=== PATIENT | female | born 1960 | race Caucasian/White ===

== ENCOUNTER 2017-06-30 14:50 | Emergency (ER) | payer BC, MEDICAID ==
[~2017-06-30] VITALS: Ht 170.2 cm; Wt 83.9 kg
[~2017-06-30 14:50] MED LIST: ALPR0.5T; CAR125T; LISI-275; SIMV5TAB38
[2017-06-30 16:04] VITALS: BP 123/69
[2017-06-30] MEDS ORDERED: IBUPROFEN 600 MG TAB PO ONE (16:15)
[2017-06-30] MEDS ORDERED: cefTRIAXone SOD 1,000 MG VL IM ONE (16:15)
[2017-06-30] MEDS ORDERED: LIDOCAINE 1% (LOCAL ANESTH.) PF 5ml SDV ONE (16:23)
[2017-06-30] MEDS ORDERED: LIDOCAINE 1% (LOCAL ANESTH.) PF 5ml SDV IN ONE (16:30)
== END 2017-06-30 16:45 | disposition home or self-care (01) ==
LOC: ER 14:50
DX: N76.4 Abscess of vulva (principal); L73.1 Pseudofolliculitis barbae; I25.2 Old myocardial infarction; I10 Essential (primary) hypertension; F17.210 Nicotine dependence, cigarettes, uncomplicated; Z86.73 Personal history of transient ischemic attack (TIA), and cerebral infarction without residual deficits
CPT/HCPCS: 96372; 99283; J0696

== ENCOUNTER 2017-07-24 16:37 | Emergency (ER) | payer MEDICAID ==
[~2017-07-24] VITALS: Ht 170.2 cm; Wt 83.9 kg
[2017-07-24 18:07] LABS: Basophils # (auto) 0.3 uL; Basophils % (auto) 4.4 % (0.0-2.0); Eosinophils # (auto) 0.2 uL; Hematocrit 49.8 % (36.0-46.0); Hemoglobin 16.7 g/dL (12.2-16.2); Lymphocytes # (auto) 1.6 uL; Lymphocytes % (auto) 21.2 % (10.0-50.0); Mean Corpuscular Hemoglobin 32.5 pg (28.0-32.0); Mean Corpuscular Hgb Conc. 33.6 g/dL (32.0-36.0); Mean Corpuscular Volume 96.8 fL (80.0-100.0); Monocytes # (auto) 0.5 uL; Neutrophils % (auto) 65.4 % (37.0-80.0); Nucleated Red Blood Cells % 0.1 %; Platelet Count (auto) 252 10^3/uL (140-450); Red Blood Cells 5.14 10^6/uL (4.0-5.20); Red Cell Distribution Width 13.2 % (11.8-14.3); White Blood Cell 7.6 10^3/uL (4.4-10.8)
[2017-07-24 18:27] LABS: Alanine Aminotransferase 19 U/L (13-56); Albumin 3.5 g/dL (3.4-5.0); Alkaline Phosphatase 83 U/L (45-117); Anion Gap 8 (5-15); Aspartate Aminotransferase 9 U/L (15-37); BUN/Creatinine Ratio 14.3; Bilirubin, Total 0.3 mg/dL (0.2-1.0); Blood Urea Nitrogen 11 mg/dL (7-18); Carbon Dioxide 29 mmol/L (21-32); Chloride 104 mmol/L (98-107); GFR African American 100 mL/min; GFR Non-African American 83 mL/min; Glucose 101 mg/dL (74-106); Potassium 3.7 mmol/L (3.5-5.1); Sodium 141 mmol/L (136-145); Total Protein 7.6 g/dL (6.4-8.2)
[2017-07-24] MEDS ORDERED: ONDANSETRON HCL 4 MG/2 ML VIAL IV ONE (20:15)
[2017-07-24] MEDS ORDERED: ASPirin 81 mg TAB PO ONE (20:15)
[2017-07-24] MEDS ORDERED: MORPHINE SULFATE 8mg/ml INJ SDV IV ONE (20:15)
[2017-07-24 21:42] VITALS: BP 123/82
== END 2017-07-24 21:46 | disposition home or self-care (01) ==
LOC: ER 16:37
DX: R07.89 Other chest pain (principal); I25.2 Old myocardial infarction; I10 Essential (primary) hypertension; F12.10 Cannabis abuse, uncomplicated; F17.210 Nicotine dependence, cigarettes, uncomplicated; Z86.73 Personal history of transient ischemic attack (TIA), and cerebral infarction without residual deficits
CPT/HCPCS: 36415; 71046; 80053; 84484; 85025; 93005; 94761

== ENCOUNTER 2017-09-25 16:50 | Emergency (ER) | payer MEDICAID ==
[~2017-09-25] VITALS: Ht 170.2 cm; Wt 83.9 kg
[2017-09-25 17:15] VITALS: BP 119/63
[2017-09-25] MEDS ORDERED: cefTRIAXone SOD 1,000 MG VL IM ONE (20:00)
== END 2017-09-25 20:08 | disposition home or self-care (01) ==
LOC: ER 16:50
DX: M54.31 Sciatica, right side (principal); M54.32 Sciatica, left side; L03.116 Cellulitis of left lower limb; W57.XXXA Bitten or stung by nonvenomous insect and other nonvenomous arthropods, initial encounter; Y93.89 Activity, other specified; Y99.8 Other external cause status; Y92.89 Other specified places as the place of occurrence of the external cause
CPT/HCPCS: 96372; 99283; J0696

== ENCOUNTER → 2018-05-31 | Emergency (ER) | payer MEDICAID ==
[~2018-05-31] VITALS: Ht 170.2 cm; Wt 69.4 kg
[~2018-05-31] MED LIST changes: +HYDROcodone-ACET 10/325MG TAB PO ONE
[2018-05-31 16:19] VITALS: BP 117/77
[2018-05-31 16:46] LABS: Basophils # (auto) 0 uL; Basophils % (auto) 0.7 % (0.0-2.0); Eosinophils # (auto) 0.2 uL; Eosinophils % (auto) 3.2 % (0.0-7.0); Hematocrit 44.8 % (36.0-46.0); Hemoglobin 14.9 g/dL (12.2-16.2); Lymphocytes % (auto) 33.3 % (10.0-50.0); Mean Corpuscular Hemoglobin 32.1 pg (28.0-32.0); Mean Corpuscular Hgb Conc. 33.3 g/dL (32.0-36.0); Mean Corpuscular Volume 96.6 fL (80.0-100.0); Monocytes # (auto) 0.4 uL; Monocytes % (auto) 7.4 % (0.0-12.0); Neutrophils # (auto) 3.3 uL; Neutrophils % (auto) 55.4 % (37.0-80.0); Nucleated Red Blood Cells % 0.1 %; Platelet Count (auto) 241 10^3/uL (140-450); Red Blood Cells 4.64 10^6/uL (4.0-5.20); Red Cell Distribution Width 13.1 % (11.8-14.3)
[2018-05-31 16:58] LABS: Urine Bacteria NONE SEEN /hpf (None Seen); Urine Blood Negative /uL (Negative); Urine Mucus FEW (None Seen); Urine WBC 1 /hpf (0 - 5)
[2018-05-31 17:00] LABS: Alanine Aminotransferase 18 U/L (13-56); Albumin 3.4 g/dL (3.4-5.0); Anion Gap 8 (5-15); Aspartate Aminotransferase 8 U/L (15-37); BUN/Creatinine Ratio 22.6; Blood Urea Nitrogen 14 mg/dL (7-18); Calcium 8.4 mg/dL (8.5-10.1); Carbon Dioxide 27 mmol/L (21-32); Chloride 106 mmol/L (98-107); GFR African American 129 mL/min; GFR Non-African American 106 mL/min; Glucose 110 mg/dL (74-106); Potassium 4.1 mmol/L (3.5-5.1); Sodium 141 mmol/L (136-145)
[2018-05-31 17:05] LABS: Alkaline Phosphatase 80 U/L (45-117); Bilirubin, Total 0.2 mg/dL (0.2-1.0)
== END | disposition home or self-care (01) ==
LOC: ER 16:02
DX: N83.8 Other noninflammatory disorders of ovary, fallopian tube and broad ligament (principal); I10 Essential (primary) hypertension; I25.2 Old myocardial infarction; I25.10 Atherosclerotic heart disease of native coronary artery without angina pectoris; F17.210 Nicotine dependence, cigarettes, uncomplicated; F12.10 Cannabis abuse, uncomplicated
CPT/HCPCS: 36415; 71046; 74176; 80053; 81001; 84484; 85025

== ENCOUNTER 2018-12-01 15:40 | Emergency (ER) | payer SELFPAY ==
[~2018-12-01] VITALS: Ht 170.2 cm; Wt 65.8 kg
[~2018-12-01 15:40] MED LIST changes: -HYDROcodone-ACET 10/325MG TAB PO ONE
[2018-12-01 16:39] LABS: Eosinophils # (auto) 0.2 uL; Monocytes # (auto) 0.5 uL
[2018-12-01 16:44] LABS: Basophils # (auto) 0.1 uL; Basophils % (auto) 1.1 % (0.0-2.0); Eosinophils % (auto) 2.6 % (0.0-7.0); Hematocrit 45.8 % (36.0-46.0); Hemoglobin 15.1 g/dL (12.2-16.2); Mean Corpuscular Hemoglobin 32.6 pg (28.0-32.0); Mean Corpuscular Hgb Conc. 33.1 g/dL (32.0-36.0); Mean Corpuscular Volume 98.6 fL (80.0-100.0); Monocytes % (auto) 7.9 % (0.0-12.0); Neutrophils # (auto) 3.3 uL; Neutrophils % (auto) 55.4 % (37.0-80.0); Nucleated Red Blood Cells % 0.2 %; Platelet Count (auto) 218 10^3/uL (140-450); Red Blood Cells 4.64 10^6/uL (4.0-5.20)
[2018-12-01 16:51] LABS: Alanine Aminotransferase 23 U/L (13-56); Albumin 3.5 g/dL (3.4-5.0); Anion Gap 5 (5-15); Aspartate Aminotransferase 16 U/L (15-37); Blood Urea Nitrogen 13 mg/dL (7-18); Calcium 8.9 mg/dL (8.5-10.1); Carbon Dioxide 28 mmol/L (21-32); Chloride 108 mmol/L (98-107); Glucose 106 mg/dL (74-106); Magnesium 2.5 mg/dL (1.6-2.6); Sodium 141 mmol/L (136-145)
[2018-12-01 17:00] LABS: Alkaline Phosphatase 73 U/L (45-117); BUN/Creatinine Ratio 18.8; Bilirubin, Total 0.3 mg/dL (0.2-1.0); GFR African American 114 mL/min; GFR Non-African American 94 mL/min
[2018-12-01 20:17] VITALS: BP 131/86
== END 2018-12-01 22:30 | disposition left against medical advice (07) ==
LOC: ER 15:40
DX: R07.89 Other chest pain (principal); M79.10 Myalgia, unspecified site; R10.9 Unspecified abdominal pain; R42 Dizziness and giddiness; Z53.21 Procedure and treatment not carried out due to patient leaving prior to being seen by health care provider
CPT/HCPCS: 36415; 71046; 80053; 83735; 83880; 84484; 85025; 93005

== ENCOUNTER 2018-12-21 17:42 | Emergency (ER) | payer SELFPAY ==
[~2018-12-21] VITALS: Ht 170.2 cm; Wt 65.8 kg
[2018-12-21] MEDS ORDERED: cefTRIAXone SOD 1,000 MG VL IM ONE (20:45)
[2018-12-21] MEDS ORDERED: ACETAMINOPHEN/CODEINE#3 (300/30mg) TAB PO ONE (20:45)
[2018-12-21 20:49] VITALS: BP 136/72
== END 2018-12-21 21:00 | disposition home or self-care (01) ==
LOC: ER 17:42
DX: L02.31 Cutaneous abscess of buttock (principal); I10 Essential (primary) hypertension; I25.2 Old myocardial infarction; F17.210 Nicotine dependence, cigarettes, uncomplicated; F12.10 Cannabis abuse, uncomplicated; Z86.73 Personal history of transient ischemic attack (TIA), and cerebral infarction without residual deficits
CPT/HCPCS: 96372; 99283; J0696

== ENCOUNTER 2018-12-25 14:21 | Emergency (ER) | payer MEDICAID ==
[~2018-12-25] VITALS: Ht 170.2 cm; Wt 65.8 kg
[2018-12-25 14:58] VITALS: BP 146/77
[2018-12-25] MEDS ORDERED: cefTRIAXone SOD 1,000 MG VL IM ONE (18:45)
== END 2018-12-25 19:54 | disposition home or self-care (01) ==
LOC: ER 14:21
DX: L02.31 Cutaneous abscess of buttock (principal); I10 Essential (primary) hypertension; I25.2 Old myocardial infarction; F17.210 Nicotine dependence, cigarettes, uncomplicated; F12.10 Cannabis abuse, uncomplicated; Z86.73 Personal history of transient ischemic attack (TIA), and cerebral infarction without residual deficits
CPT/HCPCS: 96372; 99283; J0696

== ENCOUNTER 2019-01-07 22:49 | Emergency (ER) | payer MEDICAID ==
[~2019-01-07] VITALS: Ht 170.2 cm; Wt 65.8 kg
[2019-01-07 23:38] VITALS: BP 108/46
[2019-01-08] MEDS ORDERED: cefTRIAXone SOD 1,000 MG VL IM ONE (01:30)
== END 2019-01-08 02:10 | disposition home or self-care (01) ==
LOC: ER 22:50
DX: L02.31 Cutaneous abscess of buttock (principal); I25.10 Atherosclerotic heart disease of native coronary artery without angina pectoris; I10 Essential (primary) hypertension; I25.2 Old myocardial infarction; F17.210 Nicotine dependence, cigarettes, uncomplicated; F12.90 Cannabis use, unspecified, uncomplicated; Z79.899 Other long term (current) drug therapy
CPT/HCPCS: 96372; 99283; J0696

== ENCOUNTER 2019-03-25 11:30 | Emergency (ER) | payer MEDICAID ==
[~2019-03-25] VITALS: Ht 170.2 cm; Wt 65.8 kg
[2019-03-25 13:53] VITALS: BP 113/69
[2019-03-25] MEDS ORDERED: KETOROLAC TROMETH 60MG/2ML VIAL IM ONE (15:00)
[2019-03-25] MEDS ORDERED: METHOCARBAMOL 500 MG TAB PO ONE (15:00)
== END 2019-03-25 15:24 | disposition home or self-care (01) ==
LOC: ER 11:30
DX: M54.16 Radiculopathy, lumbar region (principal); F17.210 Nicotine dependence, cigarettes, uncomplicated; F12.10 Cannabis abuse, uncomplicated; I25.2 Old myocardial infarction; Z86.73 Personal history of transient ischemic attack (TIA), and cerebral infarction without residual deficits
CPT/HCPCS: 81002; 96372; 99283; J1885

== ENCOUNTER 2019-08-31 11:38 | Emergency (ER) | payer MEDICAID ==
[~2019-08-31] VITALS: Ht 170.2 cm; Wt 63.5 kg
[2019-08-31 12:33] LABS: Basophils # (auto) 0.1 10 ^3/uL (0-0.2); Basophils % (auto) 0.9 % (0.0-2.0); Eosinophils # (auto) 0.3 10 ^3/uL (0-0.8); Eosinophils % (auto) 4.6 % (0.0-7.0); Hematocrit 41.3 % (36.0-46.0); Hemoglobin 13.8 g/dL (12.2-16.2); Lymphocytes # (auto) 1.6 10 ^3/uL (0.4-5.4); Lymphocytes % (auto) 29.2 % (10.0-50.0); Mean Corpuscular Hemoglobin 32.4 pg (28.0-32.0); Mean Corpuscular Hgb Conc. 33.3 g/dL (32.0-36.0); Mean Corpuscular Volume 97.1 fL (80.0-100.0); Monocytes # (auto) 0.5 10 ^3/uL (0-1.3); Monocytes % (auto) 8.3 % (0.0-12.0); Neutrophils # (auto) 3.1 10 ^3/uL (1.6-8.6); Nucleated Red Blood Cells % 0.1 %; Platelet Count (auto) 232 10^3/uL (140-450); Red Blood Cells 4.26 10^6/uL (4.0-5.20); Red Cell Distribution Width 13.7 % (11.8-14.3); White Blood Cell 5.5 10^3/uL (4.4-10.8)
[2019-08-31 12:53] LABS: Calcium 8.2 mg/dL (8.5-10.1)
[2019-08-31 12:56] LABS: BUN/Creatinine Ratio 16.2; Bilirubin, Total 0.2 mg/dL (0.2-1.0); Total Protein 6.3 g/dL (6.4-8.2)
[2019-08-31 13:23] LABS: Urine Bacteria MANY /hpf (None Seen); Urine Blood Negative /uL (Negative); Urine Mucus FEW (None Seen); Urine WBC 35 /hpf (0 - 5)
[2019-08-31] MEDS ORDERED: cefTRIAXone 1GM/50ML D5W 50 ML IV ONE (13:45)
[2019-08-31 14:10] VITALS: BP 118/63
== END 2019-08-31 15:30 | disposition home or self-care (01) ==
LOC: ER 11:38
DX: M54.16 Radiculopathy, lumbar region (principal); N39.0 Urinary tract infection, site not specified; E44.0 Moderate protein-calorie malnutrition; F17.210 Nicotine dependence, cigarettes, uncomplicated; Z68.21 Body mass index [BMI] 21.0-21.9, adult
CPT/HCPCS: 36415; 80053; 81001; 85025; 93005; 96365; 99284; J0696

== ENCOUNTER 2019-10-18 05:09 | Emergency (ER) | payer MEDICAID ==
[~2019-10-18] VITALS: Ht 170.2 cm; Wt 61.8 kg
[2019-10-18 06:37] LABS: Urine Bacteria FEW /hpf (None Seen); Urine Blood Negative /uL (Negative); Urine Specific Gravity 1.009 (1.001-1.035); Urine WBC 1 /hpf (0 - 5)
[2019-10-18] MEDS ORDERED: CLINDAMYCIN 600MG IV 50 ML IV ONE (06:45)
[2019-10-18] MEDS ORDERED: cefTRIAXone 1GM/50ML D5W 50 ML IV ONE (06:45)
[2019-10-18 06:51] LABS: Alcohol, Urine < 3.0 mg/dL (0-10); Amphetamine Screen, Urine POSITIVE (NEGATIVE); Barbiturate Scree,Urine NEGATIVE (NEGATIVE); Benzodiazephine Screen, Urine NEGATIVE (NEGATIVE); Cannabinoid Screen, Urine NEGATIVE (NEGATIVE); Cocaine Screen, Urine NEGATIVE (NEGATIVE); Opiate Scree,Urine NEGATIVE (NEGATIVE); Phencyclidine Screen, Urine NEGATIVE (NEGATIVE)
[2019-10-18 09:10] VITALS: BP 110/63
[2019-10-18 09:30] LABS: Basophils # (auto) 0 10 ^3/uL (0-0.2); Basophils % (auto) 0.6 % (0.0-2.0); Eosinophils # (auto) 0.2 10 ^3/uL (0-0.8); Eosinophils % (auto) 3.5 % (0.0-7.0); Hematocrit 40.7 % (36.0-46.0); Hemoglobin 13.8 g/dL (12.2-16.2); Lymphocytes # (auto) 1.6 10 ^3/uL (0.4-5.4); Lymphocytes % (auto) 24.1 % (10.0-50.0); Mean Corpuscular Hemoglobin 32.7 pg (28.0-32.0); Mean Corpuscular Hgb Conc. 33.8 g/dL (32.0-36.0); Mean Corpuscular Volume 96.9 fL (80.0-100.0); Monocytes # (auto) 0.6 10 ^3/uL (0-1.3); Monocytes % (auto) 8.3 % (0.0-12.0); Neutrophils # (auto) 4.3 10 ^3/uL (1.6-8.6); Neutrophils % (auto) 63.5 % (37.0-80.0); Platelet Count (auto) 206 10^3/uL (140-450); Red Blood Cells 4.21 10^6/uL (4.0-5.20); White Blood Cell 6.8 10^3/uL (4.4-10.8)
[2019-10-18 09:49] LABS: Albumin 2.9 g/dL (3.4-5.0); Calcium 8.7 mg/dL (8.5-10.1); Potassium 3.9 mmol/L (3.5-5.1)
[2019-10-18 09:52] LABS: BUN/Creatinine Ratio 17.2; Bilirubin, Total 0.4 mg/dL (0.2-1.0); Total Protein 6.4 g/dL (6.4-8.2)
== END 2019-10-18 09:12 | disposition home or self-care (01) ==
LOC: ER 05:09
DX: L03.111 Cellulitis of right axilla (principal); L29.9 Pruritus, unspecified; K52.9 Noninfective gastroenteritis and colitis, unspecified; I10 Essential (primary) hypertension; I25.2 Old myocardial infarction
CPT/HCPCS: 36415; 74176; 80053; 80307; 81001; 85025; 96365; 96367; 99284; J0696; J3490

== ENCOUNTER 2020-09-11 11:17 | Emergency (ER) | payer MEDICAID ==
[~2020-09-11] VITALS: Ht 170.2 cm; Wt 65.8 kg
[2020-09-11 12:07] LABS: Basophils # (auto) 0 10 ^3/uL (0-0.2); Basophils % (auto) 0.7 % (0.0-2.0); Eosinophils # (auto) 0.1 10 ^3/uL (0-0.8); Eosinophils % (auto) 1.7 % (0.0-7.0); Hematocrit 47.3 % (36.0-46.0); Hemoglobin 16.3 g/dL (12.2-16.2); Lymphocytes # (auto) 1.7 10 ^3/uL (0.4-5.4); Lymphocytes % (auto) 25.2 % (10.0-50.0); Mean Corpuscular Hemoglobin 32.4 pg (28.0-32.0); Mean Corpuscular Hgb Conc. 34.4 g/dL (32.0-36.0); Mean Corpuscular Volume 94.3 fL (80.0-100.0); Monocytes # (auto) 0.4 10 ^3/uL (0-1.3); Monocytes % (auto) 6.5 % (0.0-12.0); Neutrophils # (auto) 4.5 10 ^3/uL (1.6-8.6); Neutrophils % (auto) 65.9 % (37.0-80.0); Platelet Count (auto) 254 10^3/uL (140-450); Red Blood Cells 5.02 10^6/uL (4.0-5.20); Red Cell Distribution Width 13.2 % (11.8-14.3); White Blood Cell 6.8 10^3/uL (4.4-10.8)
[2020-09-11 12:09] LABS: Urine Bacteria NONE SEEN /hpf (None Seen); Urine Blood Negative /uL (Negative); Urine Mucus FEW (None Seen); Urine WBC 2 /hpf (0 - 5)
[2020-09-11] MEDS ORDERED: MORPHINE SULFATE 4 MG/ML SYR/VIAL IV ONE (12:15)
[2020-09-11] MEDS ORDERED: ONDANSETRON HCL 4 MG/2 ML VIAL IV ONE (12:15)
[2020-09-11 12:38] LABS: Potassium 4.2 mmol/L (3.5-5.1)
[2020-09-11 12:50] LABS: Albumin 3.4 g/dL (3.4-5.0); Bilirubin, Total 0.3 mg/dL (0.2-1.0); Total Protein 7.3 g/dL (6.4-8.2)
[2020-09-11] MEDS ORDERED: HYDROcodone-ACET 10/325MG TAB PO ONE (13:00)
[2020-09-11 13:13] LABS: Alcohol, Urine < 3.0 mg/dL (0-10); Amphetamine Screen, Urine POSITIVE (NEGATIVE); Barbiturate Scree,Urine NEGATIVE (NEGATIVE); Benzodiazephine Screen, Urine POSITIVE (NEGATIVE); Cannabinoid Screen, Urine NEGATIVE (NEGATIVE); Cocaine Screen, Urine NEGATIVE (NEGATIVE); Opiate Scree,Urine NEGATIVE (NEGATIVE); Phencyclidine Screen, Urine NEGATIVE (NEGATIVE)
[2020-09-11 13:32] VITALS: BP 111/61
== END 2020-09-11 13:38 | disposition home or self-care (01) ==
LOC: ER 11:17
DX: R10.11 Right upper quadrant pain (principal); R10.31 Right lower quadrant pain; I25.10 Atherosclerotic heart disease of native coronary artery without angina pectoris; I10 Essential (primary) hypertension; I25.2 Old myocardial infarction; F17.210 Nicotine dependence, cigarettes, uncomplicated; Z79.899 Other long term (current) drug therapy
CPT/HCPCS: 36415; 74176; 80053; 80307; 81001; 83690; 84484; 85025; 93005

== ENCOUNTER 2021-01-16 18:11 | Emergency (ER) | payer MEDICAID ==
[~2021-01-16] VITALS: Ht 154.9 cm; Wt 68.0 kg
[2021-01-16 18:26] VITALS: BP 150/84
[2021-01-16] MEDS ORDERED: SODIUM CHLORIDE 0.9% 500 ML IVB ONE (19:45)
[2021-01-16] MEDS ORDERED: ONDANSETRON HCL 4 MG/2 ML VIAL IV ONE (19:45)
[2021-01-16] MEDS ORDERED: MORPHINE SULFATE 4 MG/ML SYR/VIAL IV ONE (19:45)
[2021-01-16] MEDS ORDERED: IODIXANOL 320MG/ML 100ML BTL IV ONE (20:16)
== END 2021-01-16 23:26 | disposition left against medical advice (07) ==
LOC: ER 18:12
DX: R10.31 Right lower quadrant pain (principal); R11.2 Nausea with vomiting, unspecified; I25.2 Old myocardial infarction; I25.10 Atherosclerotic heart disease of native coronary artery without angina pectoris; I10 Essential (primary) hypertension; F17.210 Nicotine dependence, cigarettes, uncomplicated; Z79.899 Other long term (current) drug therapy; Z90.49 Acquired absence of other specified parts of digestive tract
CPT/HCPCS: 93005; Q9967

== ENCOUNTER 2021-08-15 | Emergency (ER) | payer MEDICAID ==
[~2021-08-15] VITALS: Ht 170.2 cm; Wt 65.8 kg
[2021-08-15 03:23] VITALS: BP 126/68
[2021-08-15] MEDS ORDERED: KETOROLAC TROMETH 60MG/2ML VIAL IM ONE (03:45)
== END 2021-08-15 04:40 | disposition home or self-care (01) ==
LOC: ER 00:11
DX: M54.9 Dorsalgia, unspecified (principal); I10 Essential (primary) hypertension; F17.210 Nicotine dependence, cigarettes, uncomplicated; F12.10 Cannabis abuse, uncomplicated; F15.10 Other stimulant abuse, uncomplicated
CPT/HCPCS: 96372; 99283; J1885

== ENCOUNTER 2021-09-04 16:23 | Emergency (ER) | payer MEDICAID ==
[~2021-09-04] VITALS: Ht 170.2 cm; Wt 65.8 kg
[2021-09-04 16:28] VITALS: BP 144/79
[2021-09-04] MEDS ORDERED: CEPH500C PO (17:21)
[2021-09-04] MEDS ORDERED: TRIA0.02 TOP (17:21)
== END 2021-09-04 17:26 | disposition home or self-care (01) ==
LOC: ER 16:23
DX: S50.361A Insect bite (nonvenomous) of right elbow, initial encounter (principal); I10 Essential (primary) hypertension; F17.210 Nicotine dependence, cigarettes, uncomplicated; F12.10 Cannabis abuse, uncomplicated; F15.10 Other stimulant abuse, uncomplicated; W57.XXXA Bitten or stung by nonvenomous insect and other nonvenomous arthropods, initial encounter; Y93.89 Activity, other specified; Y92.89 Other specified places as the place of occurrence of the external cause; Y99.8 Other external cause status

== ENCOUNTER 2022-11-25 20:53 | Inpatient (IN) | payer MEDICAID ==
[~2022-11-25] VITALS: Ht 170.2 cm; Wt 84.1 kg
[~2022-11-25 20:53] MED LIST changes: +CEPH500C PO; +TRIA0.02 TOP
[2022-11-25 21:25] LABS: Basophils # (auto) 0.1 10 ^3/uL (0-0.2); Eosinophils # (auto) 0.1 10 ^3/uL (0-0.8); Eosinophils % (auto) 1.3 % (0.0-7.0); Hematocrit 47.6 % (36.0-46.0); Hemoglobin 16.2 g/dL (12.2-16.2); Lymphocytes # (auto) 2.9 10 ^3/uL (0.4-5.4); Lymphocytes % (auto) 26.6 % (10.0-50.0); Mean Corpuscular Hemoglobin 32.7 pg (28.0-32.0); Mean Corpuscular Volume 96.2 fL (80.0-100.0); Monocytes # (auto) 0.9 10 ^3/uL (0-1.3); Monocytes % (auto) 8.4 % (0.0-12.0); Neutrophils # (auto) 6.8 10 ^3/uL (1.6-8.6); Neutrophils % (auto) 62.7 % (37.0-80.0); Nucleated Red Blood Cells % 0.1 %; Red Blood Cells 4.95 10^6/uL (4.0-5.20); Red Cell Distribution Width 13.7 % (11.8-14.3); White Blood Cell 10.9 10^3/uL (4.4-10.8)
[2022-11-25 21:42] LABS: INR 0.95 (0.9-1.15); Partial Thromboplastin Time 26.3 SEC (24.5-34.5)
[2022-11-25 21:43] LABS: Alanine Aminotransferase 18 U/L (7-40); Albumin 4.5 g/dL (3.2-4.8); Alkaline Phosphatase 70 U/L (46-116); Anion Gap 8.8 (5-15); Aspartate Aminotransferase 14 U/L (13-40); BUN/Creatinine Ratio 18.1 (10.0-20.0); Blood Urea Nitrogen 15 mg/dL (9-23); Carbon Dioxide 22.2 mmol/L (20-30); Chloride 105 mmol/L (98-107); Glucose 115 mg/dL (74-106); Potassium 4.2 mmol/L (3.5-5.1); Sodium 136 mmol/L (136-145)
[2022-11-25 21:44] LABS: Bilirubin, Total 0.3 mg/dL (0.2-1.0); Total Protein 7.5 g/dL (5.7-8.2)
[2022-11-26] MEDS ORDERED: HYDROcodone-ACET 5/325MG TAB PO PRN (02:00)
[2022-11-26] MEDS ORDERED: DOCUSATE SOD 100 MG CAP PO PRN (02:00)
[2022-11-26] MEDS ORDERED: NITROGLYCERIN 0.4 MG SL TAB SL PRN (02:00)
[2022-11-26] MEDS ORDERED: MORPHINE SULFATE INJ 2 MG/ml SYRG IV PRN ×2 (02:00)
[2022-11-26] MEDS ORDERED: ONDANSETRON HCL 4 MG/2 ML VIAL IV PRN (02:00)
[2022-11-26] MEDS ORDERED: SODIUM CHLORIDE 0.9% 1,000 ML IV SCH (02:00)
[2022-11-26] MEDS ORDERED: ACETAMINOPHEN 325 MG TAB PO PRN (02:00)
[2022-11-26 06:48] LABS: Basophils # (auto) 0.1 10 ^3/uL (0-0.2); Eosinophils # (auto) 0.2 10 ^3/uL (0-0.8); Eosinophils % (auto) 2.2 % (0.0-7.0); Hematocrit 45.8 % (36.0-46.0); Hemoglobin 15.6 g/dL (12.2-16.2); Lymphocytes # (auto) 2.5 10 ^3/uL (0.4-5.4); Lymphocytes % (auto) 25.9 % (10.0-50.0); Mean Corpuscular Hemoglobin 32.8 pg (28.0-32.0); Mean Corpuscular Volume 96.6 fL (80.0-100.0); Monocytes # (auto) 0.7 10 ^3/uL (0-1.3); Monocytes % (auto) 7.2 % (0.0-12.0); Neutrophils # (auto) 6.1 10 ^3/uL (1.6-8.6); Neutrophils % (auto) 63.7 % (37.0-80.0); Nucleated Red Blood Cells % 0.2 %; Red Blood Cells 4.74 10^6/uL (4.0-5.20); Red Cell Distribution Width 13.8 % (11.8-14.3); White Blood Cell 9.6 10^3/uL (4.4-10.8)
[2022-11-26 07:49] LABS: Alanine Aminotransferase 19 U/L (7-40); Albumin 4.4 g/dL (3.2-4.8); Alkaline Phosphatase 64 U/L (46-116); Aspartate Aminotransferase 13 U/L (13-40); BUN/Creatinine Ratio 21.7 (10.0-20.0); Blood Urea Nitrogen 15 mg/dL (9-23); Calcium 9.5 mg/dL (8.5-10.1); Chloride 105 mmol/L (98-107); Glucose 114 mg/dL (74-106); Potassium 4.1 mmol/L (3.5-5.1); Sodium 136 mmol/L (136-145)
[2022-11-26 07:50] LABS: Bilirubin, Total 0.4 mg/dL (0.2-1.0); Total Protein 7.3 g/dL (5.7-8.2)
[2022-11-26 08:00] VITALS: BP 130/77; PULSE 15; RESP 15; TEMP 97.8; O2SAT 98
[2022-11-26] MEDS ORDERED: ASPirin 81 mg TAB PO SCH (10:00)
[2022-11-26] MEDS ORDERED: CARVEDILOL 12.5 MG TAB PO SCH (10:00)
[2022-11-26] MEDS ORDERED: ATORVASTATIN 20 MG TAB PO SCH (22:00)
== END 2022-11-26 10:30 | disposition left against medical advice (07) | DRG 198 ==
LOC: ER 20:53 → TELE 11-26 02:05
PROVIDERS: ADMIT Nurse Practitioner Family; ATTEND Nurse Practitioner Family
DX: R07.9 Chest pain, unspecified (principal); I25.10 Atherosclerotic heart disease of native coronary artery without angina pectoris; D72.829 Elevated white blood cell count, unspecified; F17.210 Nicotine dependence, cigarettes, uncomplicated; I10 Essential (primary) hypertension; F15.90 Other stimulant use, unspecified, uncomplicated; F12.90 Cannabis use, unspecified, uncomplicated; M79.7 Fibromyalgia; G89.29 Other chronic pain; R73.9 Hyperglycemia, unspecified; I25.2 Old myocardial infarction
CPT/HCPCS: 36415; 71045; 80053; 83735; 83880; 84484; 85025; 85610; 85730; 93005; G0378

== ENCOUNTER 2023-11-16 18:13 | Emergency (ER) | payer MEDICAID ==
[~2023-11-16] VITALS: Ht 170.2 cm; Wt 75.0 kg
[~2023-11-16 18:13] MED LIST changes: +DULO60CA41 PO; +GABA-1250 PO; +NITR-52 PO
[2023-11-16 18:58] LABS: Basophils # (auto) 0.1 10 ^3/uL (0-0.2); Basophils % (auto) 0.9 % (0.0-2.0); Eosinophils # (auto) 0.2 10 ^3/uL (0-0.8); Eosinophils % (auto) 2.4 % (0.0-7.0); Hematocrit 47.5 % (36.0-46.0); Hemoglobin 15.6 g/dL (12.2-16.2); Lymphocytes # (auto) 2.8 10 ^3/uL (0.4-5.4); Lymphocytes % (auto) 34.1 % (10.0-50.0); Mean Corpuscular Hgb Conc. 32.9 g/dL (32.0-36.0); Mean Corpuscular Volume 97.4 fL (80.0-100.0); Monocytes # (auto) 0.6 10 ^3/uL (0-1.3); Monocytes % (auto) 7.6 % (0.0-12.0); Neutrophils # (auto) 4.4 10 ^3/uL (1.6-8.6); Nucleated Red Blood Cells % 0.1 %; Platelet Count (auto) 274 10^3/uL (140-450); Red Blood Cells 4.88 10^6/uL (4.0-5.20); Red Cell Distribution Width 13.3 % (11.8-14.3); White Blood Cell 8.1 10^3/uL (4.4-10.8)
[2023-11-16 19:20] LABS: INR 0.98 (0.9-1.15); Partial Thromboplastin Time 26.7 SEC (24.5-34.5); Prothrombin Time 10.4 sec (9.3-11.8)
[2023-11-16 19:38] LABS: Alanine Aminotransferase 19 U/L (7-40); Albumin 4.1 g/dL (3.2-4.8); Alkaline Phosphatase 71 U/L (46-116); Anion Gap 6 (5-15); Aspartate Aminotransferase 11 U/L (13-40); BUN/Creatinine Ratio 17.6 (10.0-20.0); Bilirubin, Total 0.4 mg/dL (0.2-1.0); Blood Urea Nitrogen 13 mg/dL (9-23); Calcium 9.9 mg/dL (8.7-10.4); Carbon Dioxide 24 mmol/L (20-30); Chloride 109 mmol/L (98-107); Glucose 99 mg/dL (74-106); Potassium 4.3 mmol/L (3.5-5.1); Sodium 139 mmol/L (136-145)
[2023-11-16 19:39] LABS: Total Protein 6.9 g/dL (5.7-8.2)
[2023-11-16] MEDS: ASPirin 81 mg TAB PO ONE (20:28)
[2023-11-16 22:35] VITALS: BP 158/83; PULSE 93; RESP 18; O2SAT 98
== END 2023-11-16 22:41 | disposition home or self-care (01) ==
LOC: ER 18:13
DX: F15.10 Other stimulant abuse, uncomplicated (principal); R07.89 Other chest pain; R20.0 Anesthesia of skin; M79.672 Pain in left foot; M54.50 Low back pain, unspecified; I25.10 Atherosclerotic heart disease of native coronary artery without angina pectoris; I25.2 Old myocardial infarction; F41.9 Anxiety disorder, unspecified; F32.9 Major depressive disorder, single episode, unspecified; F17.210 Nicotine dependence, cigarettes, uncomplicated; Z98.890 Other specified postprocedural states; Z79.899 Other long term (current) drug therapy
CPT/HCPCS: 36415; 71045; 80053; 84484; 85025; 85610; 85730; 93005

== ENCOUNTER 2025-02-09 09:37 | Inpatient (IN) | payer MEDICAID ==
[~2025-02-09] VITALS: Ht 170.2 cm; Wt 80.3 kg
[2025-02-09 10:27] LABS: Hematocrit 45.7 % (36.0-46.0); Hemoglobin 15.5 g/dL (12.2-16.2); Mean Corpuscular Hemoglobin 32.1 pg (28.0-32.0); Mean Corpuscular Volume 94.6 fL (80.0-100.0); Nucleated Red Blood Cells % 0.0 %
[2025-02-09 10:38] LABS: Chloride 101 mmol/L (98-107); Potassium 3.7 mmol/L (3.5-5.1); Sodium 139 mmol/L (136-145)
[2025-02-09 10:39] LABS: Anion Gap 8 (5-15); Calcium 9.6 mg/dL (8.7-10.4); Carbon Dioxide 30 mmol/L (20-31)
[2025-02-09 10:44] LABS: BUN/Creatinine Ratio 8.0 (10.0-20.0)
[2025-02-09 10:48] LABS: Blood Urea Nitrogen 6 mg/dL (9-23); Glucose 122 mg/dL (74-106)
[2025-02-09 10:57] LABS: Urine Protein, UAD TRACE (Negative)
--- NOTE | 2025-02-09 11:13 | ED.PDOC ---
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 Patient reports having had follow up with the pain and lower extremity pain for months but has been wors ening during the past five days. Patient had two episodes of N/V during the past two weeks and notes on taking [id number] medications with no relief. Denies any other symptoms at this time. Denies chills, fever, /D, SOB, CP. No other associated symptoms, modifiers, recent injuries or sick contacts present at this time. Chief Complaint: Pelvic Pain Time Seen by MD: 10:35 Primary Care Provider: [facility] Reviewed Notes: Nurses Notes, Medications, Allergies Allergies: Coded Allergies: NO KNOWN ALLERGIES (Unverified , 02/01/12) Home Meds Active Scripts Gabapentin (Gabapentin) 300 Mg Cap, 1 CAP PO TID, #90 CAP 0 Refills Prov:LUIS M MIRANDA 08/21/23 Nitrofurantoin (Nitrofurantoin) 100 Mg Cap, 1 CAP PO BID for 5 Days, #10 CAP Prov:LUIS M MIRANDA 08/21/23 Duloxetine Hcl (Cymbalta) 60 Mg Cap, 1 CAP PO DAILY, #30 CAP 0 Refills Prov:LUIS M MIRANDA 08/21/23 Cephalexin Monohydrate (Cephalexin) 500 Mg Cap, 500 MG PO QID for 8 Days, #32 CAP Prov:ENMANUEL MARTIN 09/04/21 Triamcinolone Acetonide (Triamcinolone Acetonide) 0.025 % Cre, 1 APPLIC TOP BID, #30 GRAMS Prov:ENMANUEL MARTIN 09/04/21 Reported Medications Carvedilol (Coreg) 12.5 Mg Tab 02/01/12 Simvastatin (Zocor) 5 Mg Tab, DAILY 02/01/12 Alprazolam (Xanax) 0.5 Mg Tb, DAILY 02/01/12 Lisinopril (Lisinopril) 5 Mg Tab, DAILY 02/01/12 Information Source: Patient Mode of Arrival: Ambulatory Severity: Moderate Timing: Days Duration: Since onset, Days Prehospital treatment: None Past Medical History PAST MEDICAL HISTORY: Anxiety, CAD, Depression, [place], UTI'S Past Medical History (Other): Fibromyalgia Surgical History (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): 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 Family History Family History: Reviewed,noncontributory to illness, Unknown Social History Smoker: Unknown Alcohol: Unknown Drugs: Unknown Lives In: Homeless Constitutional: denies: chills, diaphoresis, fatigue, fever, malaise, sweats, weakness, others EENTM: denies: blurred vision, double vision, ear bleeding, ear discharge, ear drainage, ear pain, ear ringing, eye pain, eye redness, hearing loss, mouth pain, mouth swelling, nasal discharge, nose bleeding, nose congestion, nose pain, photophobia, tearing, throat pain, throat swelling, voice changes, others Respiratory: denies: cough, hemoptysis, orthopnea, SOB at rest, shortness of breath, SOB with excertion, stridor, wheezing, others Cardiovascular: denies: chest pain, dizzy spells, diaphoresis, Dyspnea on exertion, edema, irregular heart beat, left arm pain, lightheadedness, palpitations, PND, syncope, others Gastrointestinal: reports: nausea, vomiting, others; denies: abdomen distended, abdominal pain, blood streaked bowels, constipated, diarrhea, dysphagia, difficulty swallowing, hematemesis, melena, poor appetite, poor fluid intake, rectal bleeding, rectal pain Genitourinary: denies: abnormal vagina bleeding, burning, dyspareunia, dysuria, flank pain, frequency, hematuria, incontinence, pain, , vagina discharge, urgency, others Neurological: denies: dizziness, fainting, headache, left sided numbness, left sided weakness, numbness, paresthesia, pre-existing deficit, right sided numbness, right sided weakness, seizure, speech problems, tingling, tremors, weakness, others Musculoskeletal: reports: others (Pelvic pain, bilateral lower extremity pain); denies: back pain, gout, joint pain, joint swelling, muscle pain, muscle stiffness, neck pain Integumetry: denies: bruises, change in color, change in hair/nails, dryness, laceration, lesions, lumps, rash, wounds, others Allergic/Immunocompromised: denies: Difficulty Healing, Frequent Infections, Hives, Itching, others Hematologic/Lymphatic: denies: anemia, blood clots, easy bleeding, easy bruising, swollen glands, others Endocrine: denies: excessive hunger, excessive sweating, excessive thirst, excessive urination, flushing, intolerance to cold, intolerance to heat, unexplained weight gain, unexplained weight loss, others Psychiatric: denies: anxiety, bipolar disorder, depression, hopeless, panic disorder, schizophrenia, sleepless, suicidal, others All Other Systems: Reviewed and Negative Physical Exam Exam Comments Pelvic pain General Appearance: No Apparent Distress, Normal HEENT: Normal ENT Inspection, Pharynx Normal, TMs Normal Neck: Full Range of Motion, Non-Tender, Normal, Normal Inspection Respiratory: Chest Non-Tender, Lungs Clear, No Accessory Muscle Use, No Respiratory Distress, Normal Breath Sounds Cardiovascular: No Edema, No JVD, No Murmur, No Gallop, Normal Peripheral Pulses, Regular Rate/Rhythm Breast Exam: Deferred Gastrointestinal: No Organomegaly, Non Tender, No Pulsatile Mass, Normal Bowel Sounds, Soft Genitalia: Deferred Pelvic: Deferred Rectal: Deferred Extremities: No calf tenderness, Normal capillary refill, Normal inspection, Normal range of motion, Non-tender, No pedal edema Musculoskeletal : Apperance: Normal Neurologic: Alert, president mortgage 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 Was a procedure done?: No Differential Dx Considerations may include: See MDM X-Ray, Labs, Meds, VS Vital Signs Date Time Temp Pulse Resp B/P (MAP) Pulse Ox O2 Delivery O2 Flow Rate FiO2 02/09/25 11:24 95 17 157/107 02/09/25 11:22 98.4 100 17 157/107 (124) 96 98.4 02/09/25 11:22 100 17 96 Room Air 02/09/25 09:38 98.0 105 15 170/94 99 98.0 Lab Test 02/09/25 10:38 02/09/25 10:01 Range/Units Urine Color Light-yellow Yellow Urine Clarity Clear Clear Urine pH 7.0 5.0-9.0 Urine Specific [place] 1.020 1.001-1.035 Urine Protein Trace H Negative Urine Ketones Negative Negative Urine Blood Negative Negative /uL Urine Nitrite Negative Negative Urine Bilirubin Negative Negative Urine Urobilinogen Normal Negative mg/dL Urine Leukocyte Esterase Trace Negative /uL Urine RBC 2 0 - 4 /hpf Urine Microscopic WBC 7 H 0-5 /HPF Urine Squamous Epithelial Cells Few <5 /hpf Urine Bacteria Few H None Seen /hpf Urine Mucus Few None Seen Urine Glucose Trace Normal mg/dL White Blood Count 5.9 4.4-10.8 10^3/uL Red Blood Count 4.83 4.0-5.20 10^6/uL Hemoglobin 15.5 12.2-16.2 g/dL Hematocrit 45.7 36.0-46.0 % Mean Corpuscular Volume 94.6 80.0-100.0 fL Mean Corpuscular Hemoglobin 32.1 H 28.0-32.0 pg Mean Corpuscular Hemoglobin Concent 34.0 32.0-36.0 g/dL Red Cell Distribution Width 13.6 11.8-14.3 % Platelet Count 288 140-450 10^3/uL Mean Platelet Volume 8.7 6.9-10.8 fL Neutrophils (%) (Auto) 54.0 37.0-80.0 % Lymphocytes (%) (Auto) 34.3 10.0-50.0 % Monocytes (%) (Auto) 6.9 0.0-12.0 % Eosinophils (%) (Auto) 3.8 0.0-7.0 % Basophils (%) (Auto) 1.0 0.0-2.0 % Neutrophils # (Auto) 3.2 1.6-8.6 10 ^3/uL Lymphocytes # (Auto) 2.0 0.4-5.4 10 ^3/uL Monocytes # (Auto) 0.4 0-1.3 10 ^3/uL Eosinophils # (Auto) 0.2 0-0.8 10 ^3/uL Basophils # (Auto) 0.1 0-0.2 10 ^3/uL Nucleated Red Blood Cells 0.0 % Sodium Level 139 136-145 mmol/L Potassium Level 3.7 3.5-5.1 mmol/L Chloride Level 101 98-107 mmol/L Carbon Dioxide Level 30 20-31 mmol/L Anion Gap 8 5-15 Blood Urea Nitrogen 6 L 9-23 mg/dL Creatinine 0.75 0.550-1.02 mg/dL Glomerular Filtration Rate Calc 90 >90 mL/min BUN/Creatinine Ratio 8.0 L 10.0-20.0 Serum Glucose 122 H 74-106 mg/dL Calcium Level 9.6 8.7-10.4 mg/dL Current Medications Medications (Trade) Dose Ordered Sig/Tatyana Route Start Time Stop Time Status Last Admin Morphine Sulfate 4 mg ONCE ONCE IV 02/09/25 11:00 02/09/25 11:01 DC 02/09/25 11:24 Sodium Chloride 1,000 ml @ 1,000 mls/hr Q1H ONCE IV 02/09/25 11:00 02/09/25 11:59 DC 02/09/25 11:19 Ondansetron HCl (Zofran) 4 mg ONCE ONCE IV 02/09/25 11:00 02/09/25 11:01 DC 02/09/25 11:23 Time of 1ST Reevaluation: 11:05 Reevaluation 1ST: Unchanged Patient Education/Counseling: Diagnosis, Treatment, Prognosis Family Education/Counseling: No Family Present Additional Information Medical Decision Making: This is a 64-year-old woman with a history of anxiety, coronary artery disease, depression, and fibromyalgia who presents with one month of worsening lower abd ominal pain, with marked escalation in severity over the past several days. Her presentation raises concern for a broad differential including ovarian torsion, hemorrhagic or ruptured ovarian cyst, torsed adnexal mass, tubo-ovarian abscess, diverticulitis, colitis, appendicitis, nephrolithiasis, and generalized pelvic pathology. Workup: CBC: benign; no leukocytosis or anemia. BMP: benign; no significant electrolyte abnormalities or renal dysfunction. UA: largely benign and not suggestive of infection or hematuria. CT abdomen/pelvis: demonstrates a 6-cm left ovarian cystic lesion. Radiology recommends pelvic ultrasoundfor further evaluation to assess for complications such as torsion, hemorrhage, or complex features. She was initially tachycardic, likely secondary to severe pain, and improved with analgesia and IV fluids. ED Course / Treatment: The patient received IV morphine, IV Zofran, and IV fluids. Despite these interventions, she continues to report significant, intractable lower abdominal/pelvic pain. Her symptoms remain concerning for possible ovarian torsion, which is not reliably excluded on CT imaging. Given persistent pain despite multiple rounds of analgesia, she requires further inpatient evaluation and a timely pelvic ultrasound. Risk / Disposition: This patient has a 6-cm adnexal mass, persistent uncontrolled pain, and incomplete diagnostic evaluation for emergent gynecologic pathology. Outpatient management is not appropriate. She requires hospital admission for pain control, serial abdominal exams, pelvic ultrasound, and gynecologic consultation. I plan on admitting the patient for intractable abdominal pain and further workup of the ovarian cystic lesion. SEPSIS Sepsis Screen Date sepsis recognized/suspect: Feb 09, 2025 Time Sepsis recognized/suspect: 940 Recent Procedure: No On Antibiotic Therapy: No Respiratory Rate >20: No Heart Rate >90: Yes Temp<36 C (96.8 F) or >38.3 C: No SBP <90 or MAP <65 mmHG: No New Acute Mental Status Change: No Is the patient on CPAP, BIPAP,: No Physician Orders Ct Ab Pel With Iv Con Only (02/09/25 10:50) Vital Signs Date Time Temp Pulse Resp B/P (MAP) Pulse Ox O2 Delivery O2 Flow Rate FiO2 02/09/25 11:24 95 17 157/107 02/09/25 11:22 98.4 100 17 157/107 (124) 96 98.4 02/09/25 11:22 100 17 96 Room Air 02/09/25 09:38 98.0 105 15 170/94 99 98.0 Laboratory Tests Test 02/09/25 10:01 White Blood Count 5.9 10^3/uL (4.4-10.8) Medications Medications Dose Ordered Sig/Tatyana Route Start Time Stop Time Status Last Admin Dose Admin Morphine Sulfate 4 mg ONCE ONCE IV 02/09/25 11:00 02/09/25 11:01 DC 02/09/25 11:24 Ondansetron HCl 4 mg ONCE ONCE IV 02/09/25 11:00 02/09/25 11:01 DC 02/09/25 11:23 Sodium Chloride 1,000 ml @ 1,000 mls/hr Q1H ONCE IV 02/09/25 11:00 02/09/25 11:59 DC 02/09/25 11:19 Departure 1 Departure Time of Disposition: 13:12 Impression: Primary Impression: Intractable abdominal pain Additional Impression: Left ovarian cyst Disposition: ADMITTED INPATIENT Admit to: Med Surg Condition: Guarded Critical Care Note Critical Care Time?: No Stability Stability form required: No I personally scribed for SCOTT VÁSQUEZ MD ([email or web address]) on 02/09/25 at 11:13. Electronically submitted by Chris Mckeon ([email or web address]). SOCTT VÁSQUEZ MD Feb 09, 2025 11:13
[2025-02-09] MEDS: SODIUM CHLORIDE 0.9% 1,000 ML IV ONE (11:19)
[2025-02-09] MEDS: ONDANSETRON HCL 4 MG/2 ML VIAL IV ONE (11:23)
[2025-02-09] MEDS: MORPHINE SULFATE 4 MG/ML SYR/VIAL IV ONE (11:24)
[2025-02-09] MEDS: IOHEXOL 300 MG/ML 100ML BOTTLE IJ ONE (11:38)
--- NOTE | 2025-02-09 11:52 | DVH ---
CT CT AB PEL WITH IV CON ONLY INDICATION: abdominal pain EXAM DATE: 02/09/2025 11:05 AM COMPARISON: CT ABD/PEL on DOS: 11/18/23, CT ABD PELVIS WO CONTRAST on DOS: 09/11/20, CT ABD PELVIS WO CONTRAST on DOS: 10/18/19 RADIATION DOSE: CTDIvol: 24.96 mGy, DLP: 1307.04 mGy*cm PROCEDURE: Helical CT images were obtained of the abdomen and pelvis with IV contrast Sagittal and coronal reconstructions are provided. ORAL CONTRAST: None. ADDITIONAL IMAGES / REFORMATS: None All CT scans at this medical facility are performed using dose modulation techniques as appropriate to a performed exam including the following: Automated exposure control was utilized; adjustment of the MA and/or KV according to patient size; and use of iterative reconstruction technique. FINDINGS: LUNG BASE: Normal. LIVER: Normal. GALLBLADDER AND BILIARY TREE: No calcified gallstones. Normal caliber wall. No intra- or extrahepatic biliary ductal dilation. PANCREAS: Normal. SPLEEN: Normal. BOWEL: Mild colonic diverticulosis. Appendix not seen. ADRENALS: 1.2 cm left adrenal nodule. KIDNEYS AND URETER: Normal. BLADDER: Normal. REPRODUCTIVE ORGANS: 6.0 cm left ovary cyst. Absent uterus. LYMPH NODES:No lymphadenopathy. PERITONEUM: No ascites or free air. No other fluid collection. VESSELS: Scattered atherosclerotic calcifications are noted. RETROPERITONEUM: Normal. ABDOMINAL WALL: Normal. BONES: Scattered osseous degenerative changes are noted. IMPRESSION: No acute intraabdominal abnormality. 6.0 cm left ovary cystic lesion. Consider follow up pelvic US.
--- NOTE | 2025-02-09 13:54 | DVHHP2 ---
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 Patient reports having had follow up with the pain and lower extremity pain for months but has been worsening during the past five days. Patient had two episodes of N/V during the past two weeks and notes on taking [id number]-vgfaefc medications with no relief. Denies any other symptoms at this time. Denies chills, fever, /D, SOB, CP. No other associated symptoms, modifiers, recent injuries or sick contacts present at this time. 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 Family History Family History: Reviewed,noncontributory to illness, Unknown Social History Smoker: Unknown Alcohol: Unknown Drugs: Unknown Lives In: Homeless Allergies: Coded Allergies: NO KNOWN ALLERGIES (Unverified , 02/01/12) Home Meds Active Scripts Gabapentin (Gabapentin) 300 Mg Cap, 1 CAP PO TID, #90 CAP 0 Refills Prov:LUIS M MIRANDA [facility] 08/21/23 Nitrofurantoin (Nitrofurantoin) 100 Mg Cap, 1 CAP PO BID for 5 Days, #10 CAP Prov:LUIS M MIRANDA [facility] 08/21/23 Duloxetine Hcl (Cymbalta) 60 Mg Cap, 1 CAP PO DAILY, #30 CAP 0 Refills Prov:LUIS M MIRANDA 08/21/23 Cephalexin Monohydrate (Cephalexin) 500 Mg Cap, 500 MG PO QID for 8 Days, #32 CAP Prov:ENMANUEL MARTIN 09/04/21 Triamcinolone Acetonide (Triamcinolone Acetonide) 0.025 % Cre, 1 APPLIC TOP BID, #30 GRAMS Prov:ENMANUEL MARTIN 09/04/21 Reported Medications Carvedilol (Coreg) 12.5 Mg Tab 02/01/12 Simvastatin (Zocor) 5 Mg Tab, DAILY 02/01/12 Alprazolam (Xanax) 0.5 Mg Tb, DAILY 02/01/12 Lisinopril (Lisinopril) 5 Mg Tab, DAILY 02/01/12 Vital Signs Vital Signs Date Time Temp Pulse Resp B/P (MAP) Pulse Ox O2 Delivery O2 Flow Rate FiO2 02/09/25 11:24 95 17 157/107 02/09/25 11:22 98.4 96 98.4 02/09/25 11:22 Room Air Physical Exam Generally 65 years old woman, well nourished well developed. Mild distress HEENT-atraumatic normocephalic Heart-regular rate and rhythm Lungs clear to auscultate Abdomen-Nontender nondistended Musculoskeletal-no edema cyanosis Neuro-AO three, no focal deficit SEPSIS Sepsis Screen Date sepsis recognized/suspect: Feb 09, 2025 Time Sepsis recognized/suspect: 940 Recent Procedure: No On Antibiotic Therapy: No Respiratory Rate >20: No Heart Rate >90: Yes Temp<36 C (96.8 F) or >38.3 C: No SBP <90 or MAP <65 mmHG: No New Acute Mental Status Change: No Is the patient on CPAP, BIPAP,: No Physician Orders Ct Ab Pel With Iv Con Only (02/09/25 10:50) Cardiac Diet-2gna,Lofat,Lochol (02/09/25 Lunch) Vital Signs Date Time Temp Pulse Resp B/P (MAP) Pulse Ox O2 Delivery O2 Flow Rate FiO2 02/09/25 11:24 95 17 157/107 02/09/25 11:22 98.4 100 17 157/107 (124) 96 98.4 02/09/25 11:22 100 17 96 Room Air 02/09/25 09:38 98.0 105 15 170/94 99 98.0 Laboratory Tests Test 02/09/25 10:01 White Blood Count 5.9 10^3/uL (4.4-10.8) Medications Medications Dose Ordered Sig/Tatyana Route Start Time Stop Time Status Last Admin Dose Admin Morphine Sulfate 4 mg ONCE ONCE IV 02/09/25 11:00 02/09/25 11:01 DC 02/09/25 11:24 Ondansetron HCl 4 mg ONCE ONCE IV 02/09/25 11:00 02/09/25 11:01 DC 02/09/25 11:23 Sodium Chloride 1,000 ml @ 1,000 mls/hr Q1H ONCE IV 02/09/25 11:00 02/09/25 11:59 DC 02/09/25 11:19 Results Labs Test 02/09/25 10:38 02/09/25 10:01 Range/Units Urine Color Light-yellow Yellow Urine Clarity Clear Clear Urine pH 7.0 5.0-9.0 Urine Specific [place] 1.020 1.001-1.035 Urine Protein Trace H Negative Urine Ketones Negative Negative Urine Blood Negative Negative /uL Urine Nitrite Negative Negative Urine Bilirubin Negative Negative Urine Urobilinogen Normal Negative mg/dL Urine Leukocyte Esterase Trace Negative /uL Urine RBC 2 0 - 4 /hpf Urine Microscopic WBC 7 H 0-5 /HPF Urine Squamous Epithelial Cells Few <5 /hpf Urine Bacteria Few H None Seen /hpf Urine Mucus Few None Seen Urine Glucose Trace Normal mg/dL White Blood Count 5.9 4.4-10.8 10^3/uL Red Blood Count 4.83 4.0-5.20 10^6/uL Hemoglobin 15.5 12.2-16.2 g/dL Hematocrit 45.7 36.0-46.0 % Mean Corpuscular Volume 94.6 80.0-100.0 fL Mean Corpuscular Hemoglobin 32.1 H 28.0-32.0 pg Mean Corpuscular Hemoglobin Concent 34.0 32.0-36.0 g/dL Red Cell Distribution Width 13.6 11.8-14.3 % Platelet Count 288 140-450 10^3/uL Mean Platelet Volume 8.7 6.9-10.8 fL Neutrophils (%) (Auto) 54.0 37.0-80.0 % Lymphocytes (%) (Auto) 34.3 10.0-50.0 % Monocytes (%) (Auto) 6.9 0.0-12.0 % Eosinophils (%) (Auto) 3.8 0.0-7.0 % Basophils (%) (Auto) 1.0 0.0-2.0 % Neutrophils # (Auto) 3.2 1.6-8.6 10 ^3/uL Lymphocytes # (Auto) 2.0 0.4-5.4 10 ^3/uL Monocytes # (Auto) 0.4 0-1.3 10 ^3/uL Eosinophils # (Auto) 0.2 0-0.8 10 ^3/uL Basophils # (Auto) 0.1 0-0.2 10 ^3/uL Nucleated Red Blood Cells 0.0 % Sodium Level 139 136-145 mmol/L Potassium Level 3.7 3.5-5.1 mmol/L Chloride Level 101 98-107 mmol/L Carbon Dioxide Level 30 20-31 mmol/L Anion Gap 8 5-15 Blood Urea Nitrogen 6 L 9-23 mg/dL Creatinine 0.75 0.550-1.02 mg/dL Glomerular Filtration Rate Calc 90 >90 mL/min BUN/Creatinine Ratio 8.0 L 10.0-20.0 Serum Glucose 122 H 74-106 mg/dL Calcium Level 9.6 8.7-10.4 mg/dL Primary Diagnosis Large pelvic cystic lesion Pelvic pain Plan Large cystic lesion CT scan shows 6 cm cystic ovarian Ultrasound to assess for torsion 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
[2025-02-09] MEDS ORDERED: ONDANSETRON HCL 4 MG/2 ML VIAL IV PRN (14:30)
[2025-02-09] MEDS ORDERED: HYDROmorphone HCL 2 MG/ML VL/or syr IV PRN (14:30)
[2025-02-09] MEDS ORDERED: ACETAMINOPHEN 325 MG TAB PO PRN (14:30)
[2025-02-09] MEDS ORDERED: HYDROcodone-ACET 5/325MG TAB PO PRN (14:30)
--- NOTE | 2025-02-09 15:03 | DVH ---
INDICATION: assess for torsion, pain TECHNIQUE: Multiple real-time grayscale transabdominal sonographic images along with color and duplex Doppler of the uterus and ovaries were obtained. COMPARISON: US PELVIS COMPLETE on DOS: 11/18/23, CT ABD PELVIS WO CONTRAST on DOS: 09/11/20, CT ABD PELVIS WO CONTRAST on DOS: 10/18/19 FINDINGS: The uterus measures 5.6 x 2.5 x 3.1 cm. The endometrial stripe measures 1.1 mm . Right ovary measures 2.5 x 1.4 x 2.1 cm with normal Doppler color flow Left ovary measures 5.7 x 4.8 x 4.4 cm with normal Doppler color flow. There is a 5.5 x 4.1 x 3.3 cm simple left ovarian cyst. IMPRESSION: No evidence of ovarian torsion. 5.7 cm simple left ovarian cyst. Follow-up ultrasound recommended in 2-6 months to assess stability.
[2025-02-09 15:47] VITALS: BP 154/86; PULSE 98; RESP 18; TEMP 98.2; O2SAT 96
[2025-02-09 16:43] VITALS: PULSE 98; RESP 19; O2SAT 96
[2025-02-09 17:52] LABS: COVID19 ANTIGEN SOFIA FIA NEGATIVE (NEGATIVE)
[2025-02-09] MEDS: DOCUSATE SOD 100 MG CAP PO PRN (18:03)
[2025-02-09 19:30] VITALS: PULSE 86; RESP 18; O2SAT 98
[2025-02-09 21:00] VITALS: BP 134/85; PULSE 86; RESP 18; TEMP 98.1; O2SAT 97
[2025-02-09] MEDS: SODIUM CHLOR 0.9% PF (SALINE LOCK) 10ML VIAL/SYR IV SCH (22:00)
[2025-02-10 01:00] VITALS: BP 131/62; PULSE 81; RESP 17; TEMP 97.6; O2SAT 94
[2025-02-10 05:03] VITALS: BP 118/71; PULSE 87; RESP 18; TEMP 97.8; O2SAT 92
[2025-02-10 06:02] LABS: Hematocrit 45.4 % (36.0-46.0); Hemoglobin 15.4 g/dL (12.2-16.2); Mean Corpuscular Hemoglobin 32.4 pg (28.0-32.0); Mean Corpuscular Volume 95.5 fL (80.0-100.0); Nucleated Red Blood Cells % 0.2 %
[2025-02-10] MEDS: SODIUM CHLORIDE 0.9% 1,000 ML IV SCH (06:12)
[2025-02-10 06:20] LABS: Alanine Aminotransferase 18 U/L (7-40); Alkaline Phosphatase 70 U/L (46-116); Anion Gap 9 (5-15); BUN/Creatinine Ratio 7.0 (10.0-20.0); Calcium 9.5 mg/dL (8.7-10.4); Carbon Dioxide 25 mmol/L (20-31); Chloride 104 mmol/L (98-107); Glucose 80 mg/dL (74-106); Potassium 4.5 mmol/L (3.5-5.1); Sodium 138 mmol/L (136-145); Total Protein 6.7 g/dL (5.7-8.2)
[2025-02-10 06:21] LABS: Albumin 3.8 g/dL (3.2-4.8); Bilirubin, Total 0.5 mg/dL (0.2-1.0); Blood Urea Nitrogen 5 mg/dL (9-23)
[2025-02-10] MEDS: ENOXAPARIN SOD 40 MG/0.4 ML SYRINGE SC SCH (09:13)
--- NOTE | 2025-02-10 11:18 | DVHDSRES ---
Discharge Summary Date of Admission Resident Creating Document: FRANKIE FELIPE RESIDENT Feb 09, 2025 at 14:17 Date of Discharge: Feb 10, 2025 Labs/Diagnostic Data: Laboratory Results Test 02/10/25 04:40 02/09/25 17:10 02/09/25 10:38 02/09/25 10:01 White Blood Count 5.6 10^3/uL (4.4-10.8) Red Blood Count 4.76 10^6/uL (4.0-5.20) Hemoglobin 15.4 g/dL (12.2-16.2) Hematocrit 45.4 % (36.0-46.0) Mean Corpuscular Volume 95.5 fL (80.0-100.0) Mean Corpuscular Hemoglobin 32.4 pg (28.0-32.0) Mean Corpuscular Hemoglobin Concent 34.0 g/dL (32.0-36.0) Red Cell Distribution Width 13.7 % (11.8-14.3) Platelet Count 254 10^3/uL (140-450) Mean Platelet Volume 9.1 fL (6.9-10.8) Neutrophils (%) (Auto) 56.1 % (37.0-80.0) Lymphocytes (%) (Auto) 27.5 % (10.0-50.0) Monocytes (%) (Auto) 9.0 % (0.0-12.0) Eosinophils (%) (Auto) 6.6 % (0.0-7.0) Basophils (%) (Auto) 0.8 % (0.0-2.0) Neutrophils # (Auto) 3.1 10 ^3/uL (1.6-8.6) Lymphocytes # (Auto) 1.5 10 ^3/uL (0.4-5.4) Monocytes # (Auto) 0.5 10 ^3/uL (0-1.3) Eosinophils # (Auto) 0.4 10 ^3/uL (0-0.8) Basophils # (Auto) 0 10 ^3/uL (0-0.2) Nucleated Red Blood Cells 0.2 % Sodium Level 138 mmol/L (136-145) Potassium Level 4.5 mmol/L (3.5-5.1) Chloride Level 104 mmol/L (98-107) Carbon Dioxide Level 25 mmol/L (20-31) Anion Gap 9 (5-15) Blood Urea Nitrogen 5 mg/dL (9-23) Creatinine 0.71 mg/dL (0.550-1.02) Glomerular Filtration Rate Calc 96 mL/min (>90) BUN/Creatinine Ratio 7.0 (10.0-20.0) Serum Glucose 80 mg/dL (74-106) Calcium Level 9.5 mg/dL (8.7-10.4) Total Bilirubin 0.5 mg/dL (0.2-1.0) Aspartate Amino Transferase (AST) 22 U/L (13-40) Alanine Aminotransferase (ALT) 18 U/L (7-40) Alkaline Phosphatase 70 U/L (46-116) Total Protein 6.7 g/dL (5.7-8.2) Albumin 3.8 g/dL (3.2-4.8) Influenza Type A Antigen Negative (Negative) Influenza Type B Antigen Negative (Negative) SARS-CoV-2 Antigen (Rapid) Negative (NEGATIVE) Urine Color Light-yellow (Yellow) Urine Clarity Clear (Clear) Urine pH 7.0 (5.0-9.0) Urine Specific [place] 1.020 (1.001-1.035) Urine Protein Trace (Negative) Urine Ketones Negative (Negative) Urine Blood Negative /uL (Negative) Urine Nitrite Negative (Negative) Urine Bilirubin Negative (Negative) Urine Urobilinogen Normal mg/dL (Negative) Urine Leukocyte Esterase Trace /uL (Negative) Urine RBC 2 /hpf (0 - 4) Urine Microscopic WBC 7 /HPF (0-5) Urine Squamous Epithelial Cells Few /hpf (<5) Urine Bacteria Few /hpf (None Seen) Urine Mucus Few (None Seen) Urine Glucose Trace mg/dL (Normal) Other Laboratory Tests 02/10/25 04:40 Brief Hx & Hospital Course: Amelia Meehan is a 64-year-old female with a past medical history of anxiety, coronary artery disease, depression, myocardial infarction, urinary tract infection, and fibromyalgia. She presented to the emergency department on February 09, 2025, with pelvic pain that had been present for months and worsened over the past five days. She reported two episodes of nausea and vomiting in the past two weeks and stated that [id number] medications provided no relief. She denied fever, chills, diarrhea, chest pain, shortness of breath, or other associated symptoms. She also denied recent injuries or sick contacts. CT of the abdomen and pelvis revealed a six-centimeter left ovarian cystic lesion and mild colonic diverticulosis with no acute intra-abdominal abnormality. Pelvic ultrasound confirmed a 5.7-centimeter simple left ovarian cyst with normal Doppler flow and no evidence of torsion. MRSA screening was negative. The patient was admitted for pain control, intravenous fluids, antiemetics, and deep vein thrombosis prophylaxis with Lovenox. Obstetrics and gynecology was consulted. The patient was admitted for evaluation and management of pelvic pain and a large ovarian cyst. Imaging studies confirmed a simple left ovarian cyst measuring approximately six centimeters without evidence of torsion. Pain was controlled with analgesics, and intravenous fluids and antiemetics were administered. Deep vein thrombosis prophylaxis was initiated with Lovenox. Obstetrics and gynecology was consulted for further management. The patient remained hemodynamically stable throughout hospitalization. The plan included outpatient follow-up and repeat pelvic ultrasound in two to six months to monitor cyst stability. Follow up with BUSINESS DATA ANALYST Dr. Vines within one week was recommended. Physical Exam Generally 65 years old woman, well nourished well developed. Mild distress HEENT-atraumatic normocephalic Heart-regular rate and rhythm Lungs clear to auscultate Abdomen-Nontender nondistended Musculoskeletal-no edema cyanosis Neuro-AO three, no focal deficit Operations or Procedures PATIENT: AMELIA MEEHAN ACCT: [id number] UNIT: [id number] : 1960 LOC: OVERFLOW ROOM / BED: [address] [place] [address] AGE / SEX: 64 / F ADM STATUS: ADM IN SERVICE 1417 ORDERING PHYSICIAN: SAMUEL MIRANDA MD PROCEDURE(s): PELUS - PELVIC REASON: assess for torsion ORDER NUMBER(s): [id number], ACCESSION NUMBER(s): [id number] INDICATION: assess for torsion, pain TECHNIQUE: Multiple real-time grayscale transabdominal sonographic images along with color and duplex Doppler of the uterus and ovaries were obtained. COMPARISON: US PELVIS COMPLETE on DOS: 11/18/23, CT ABD PELVIS WO CONTRAST on DOS: 09/11/20, CT ABD PELVIS WO CONTRAST on DOS: 10/18/19 FINDINGS: The uterus measures 5.6 x 2.5 x 3.1 cm. The endometrial stripe measures 1.1 mm . Right ovary measures 2.5 x 1.4 x 2.1 cm with normal Doppler color flow Left ovary measures 5.7 x 4.8 x 4.4 cm with normal Doppler color flow. There is a 5.5 x 4.1 x 3.3 cm simple left ovarian cyst. IMPRESSION: No evidence of ovarian torsion. 5.7 cm simple left ovarian cyst. Follow-up ultrasound recommended in 2-6 months to assess stability. PATIENT: AMELIA MEEHAN ACCT: [id number] UNIT: [id number] : 1960 LOC: ER ROOM / BED: / AGE / SEX: 64 / F ADM STATUS: REG ER SERVICE 1050 ORDERING PHYSICIAN: SCOTT VÁSQUEZ MD PROCEDURE(s): ABPLIV - CT AB PEL WITH IV CON ONLY REASON: abdominal pain ORDER NUMBER(s): [id number], ACCESSION NUMBER(s): [id number] CT CT AB PEL WITH IV CON ONLY INDICATION: abdominal pain EXAM DATE: 02/09/2025 11:05 AM COMPARISON: CT ABD/PEL on DOS: 11/18/23, CT ABD PELVIS WO CONTRAST on DOS: 09/11/20, CT ABD PELVIS WO CONTRAST on DOS: 10/18/19 RADIATION DOSE: CTDIvol: 24.96 mGy, DLP: 1307.04 mGy*cm PROCEDURE: Helical CT images were obtained of the abdomen and pelvis with IV contrast Sagittal and coronal reconstructions are provided. ORAL CONTRAST: None. ADDITIONAL IMAGES / REFORMATS: None All CT scans at this medical facility are performed using dose modulation techniques as appropriate to a performed exam including the following: Automated exposure control was utilized; adjustment of the MA and/or KV according to patient size; and use of iterative reconstruction technique. FINDINGS: LUNG BASE: Normal. LIVER: Normal. GALLBLADDER AND BILIARY TREE: No calcified gallstones. Normal caliber wall. No intra- or extrahepatic biliary ductal dilation. PANCREAS: Normal. SPLEEN: Normal. BOWEL: Mild colonic diverticulosis. Appendix not seen. ADRENALS: 1.2 cm left adrenal nodule. KIDNEYS AND URETER: Normal. BLADDER: Normal. REPRODUCTIVE ORGANS: 6.0 cm left ovary cyst. Absent uterus. LYMPH NODES:No lymphadenopathy. PERITONEUM: No ascites or free air. No other fluid collection. VESSELS: Scattered atherosclerotic calcifications are noted. RETROPERITONEUM: Normal. ABDOMINAL WALL: Normal. BONES: Scattered osseous degenerative changes are noted. IMPRESSION: No acute intraabdominal abnormality. 6.0 cm left ovary cystic lesion. Consider follow up pelvic US. [facility] [id number] [id number] Grace Bond M.D., Laboratory Supervisor [employer] - PATIENT: AMELIA MEEHAN ACCT: [id number] LOC: OVERFLOW U: [id number] AGE/SX: 64/F ROOM: [address] [place] [address] RE02/09/[address]: FRANKIE FELIPE RESIDENT : 1960 BED: A DIS: STATUS: ADM IN TLOC: - SPEC #: [id number] RICHARD: 02/09/25 STATUS: AMISHA RERoberto #: [id number] RECD: 02/09/25 [facility] DR: SAMUEL MIRANDA MD SOURCE: NOSE ENTR: 02/09/[address]: LUDWIG: ORDERED: MRSAS - Procedure Result - MRSA Screen Final RESULT NEGATIVE No MRSA detected. Methodology: DNA Amplification This is an automated qualitative in vitro diagnostic test for the direct detection of methicillin-resistant Staphylococcus aureus (MRSA) DNA from nasal swabs that utilizes real-time polymerase chain reaction (PCR) and flourogenic target-specific hybridization probes for the detection of the amplified DNA. Condition at Discharge: Stable Final Diagnosis/Problems List Left ovarian cyst Discharge Disposition: Home Discharge Instruct/Medications Diet: Regular Activity: No Restrictions, As Tolerated Follow Up/Referral: Follow up with OBGYN Dr. Vines within 1 week Medications: as per EMR continue home medications Scheduled Alprazolam (Xanax), DAILY, (Reported) Cephalexin Monohydrate (Cephalexin), 500 MG PO QID Duloxetine Hcl (Cymbalta), 1 CAP PO DAILY Gabapentin (Gabapentin), 1 CAP PO TID Lisinopril (Lisinopril), DAILY, (Reported) Simvastatin (Zocor), DAILY, (Reported) Miscellaneous Medications Carvedilol (Coreg), (Reported) Discontinued Medications Nitrofurantoin (Nitrofurantoin), 1 CAP PO BID Triamcinolone Acetonide (Triamcinolone Acetonide), 1 APPLIC TOP BID Discharge Statement: "Patient was advised to return to the ER or call 911 if any headaches, dizziness, shortness of breath, chest pain, abdominal pain, bleeding, fevers, or worsening of medical condition. Patient was counseled about treatment plan, medications, possible side effects, patientverbalized understanding. All questions were answered to the best of my ability. This discharge took greater then 30 minutes in planning, reviewing documentation, counseling the patient, and discussing with other team members." ASSESSMENT ASSESSMENT Assessment Left ovarian cyst Date of Service: Feb 10, 2025 Billing Provider: JF KC DO Common Visit Codes: 03312-VOL/OBS DISCH DAY >30min FRANKIE FELIPE RESIDENT Feb 10, 2025 11:18 JF KC DO Feb 12, 2025 07:31
== END 2025-02-10 16:00 | disposition home or self-care (01) | DRG 532 ==
LOC: ER 09:37 → OVERFLOW 14:17
PROVIDERS: ADMIT Internal Medicine; ATTEND Internal Medicine
DX: N83.202 Unspecified ovarian cyst, left side (principal); Z59.00 Homelessness unspecified; F32.A Depression, unspecified; F41.9 Anxiety disorder, unspecified; Z20.822 Contact with and (suspected) exposure to COVID-19; I25.10 Atherosclerotic heart disease of native coronary artery without angina pectoris; M79.7 Fibromyalgia; I25.2 Old myocardial infarction
CPT/HCPCS: 36415; 74177; 76856; 80048; 80053; 81001; 85025; 86803; 87081; 87426; 87804; 96361; 96374; 96375; G0378; J2405

== ENCOUNTER 2025-02-25 11:58 | Emergency (ER) | payer MEDICAID ==
[~2025-02-25] VITALS: Ht 165.1 cm; Wt 75.7 kg
[~2025-02-25 11:58] MED LIST changes: -NITR-52 PO; -TRIA0.02 TOP
--- NOTE | 2025-02-25 13:12 | ED.PDOC ---
History of Present Illness HPI Comments 64-year-old female with PMHx anxiety, CAD, depression, frequent UTIs, ovarian cyst presents to the ED with a chief complaint of pelvic pain onset 2 weeks. Patient states she has been experiencing RT pelvic pain for the past 2 weeks, was diagnosed with LT ovarian cyst 1 month ago and was referred to an OBGYN. Patient has not been able to make an appointment. Patient woke up this morning and noticed pain has increased. Denies nausea, vomiting, diarrhea, dysuria, hematuria, hematemesis, fever, chills, chest pain, shortness of breath. No other symptoms or modifying factors present at this time. Chief Complaint: Pelvic Pain Time Seen by MD: 13:00 Primary Care Provider: [facility] Reviewed Notes: Medications, Allergies Allergies: Coded Allergies: NO KNOWN ALLERGIES (Unverified , 02/01/12) Home Meds Active Scripts Nitrofurantoin Monohydrate Mac (Macrobid) 100 Mg Cap, 100 MG PO BID for 10 Days, #20 CAP Prov:JENNIFER NJ MD 02/25/25 Gabapentin (Gabapentin) 300 Mg Cap, 1 CAP PO TID, #90 CAP 0 Refills Prov:LUIS M MIRANDA 08/21/23 Duloxetine Hcl (Cymbalta) 60 Mg Cap, 1 CAP PO DAILY, #30 CAP 0 Refills Prov:LUIS M MIRANDA 08/21/23 Cephalexin Monohydrate (Cephalexin) 500 Mg Cap, 500 MG PO QID for 8 Days, #32 CAP Prov:ENMANUEL MARTIN 09/04/21 Reported Medications Carvedilol (Coreg) 12.5 Mg Tab 02/01/12 Simvastatin (Zocor) 5 Mg Tab, DAILY 02/01/12 Alprazolam (Xanax) 0.5 Mg Tb, DAILY 02/01/12 Lisinopril (Lisinopril) 5 Mg Tab, DAILY 02/01/12 Information Source: Patient Mode of Arrival: Ambulatory Severity: Moderate Timing: Months Duration: Since onset Prehospital treatment: None Past Medical History PAST MEDICAL HISTORY: Anxiety, CAD, Depression, NC, UTI'S [place] History: Ovarian Cysts Family History Family History: Reviewed,noncontributory to illness, Unknown Social History Smoker: Non-Smoker Alcohol: Denies ETOH Use Drugs: Denies Drug Use Lives In: Homeless Constitutional: denies: chills, diaphoresis, fatigue, fever, malaise, sweats, weakness, others EENTM: denies: blurred vision, double vision, ear bleeding, ear discharge, ear drainage, ear pain, ear ringing, eye pain, eye redness, hearing loss, mouth pain, mouth swelling, nasal discharge, nose bleeding, nose congestion, nose pain, photophobia, tearing, throat pain, throat swelling, voice changes, others Respiratory: denies: cough, hemoptysis, orthopnea, SOB at rest, shortness of breath, SOB with excertion, stridor, wheezing, others Cardiovascular: denies: chest pain, dizzy spells, diaphoresis, Dyspnea on exertion, edema, irregular heart beat, left arm pain, lightheadedness, palpitations, PND, syncope, others Gastrointestinal: denies: abdomen distended, abdominal pain, blood streaked bowels, constipated, diarrhea, dysphagia, difficulty swallowing, hematemesis, melena, nausea, poor appetite, poor fluid intake, rectal bleeding, rectal pain, vomiting, others Genitourinary: reports: pain (RT pelvic); denies: abnormal vagina bleeding, burning, dyspareunia, dysuria, flank pain, frequency, hematuria, incontinence, , vagina discharge, urgency, others Neurological: denies: dizziness, fainting, headache, left sided numbness, left sided weakness, numbness, paresthesia, pre-existing deficit, right sided numbness, right sided weakness, seizure, speech problems, tingling, tremors, weakness, others Musculoskeletal: denies: back pain, gout, joint pain, joint swelling, muscle pain, muscle stiffness, neck pain, others Integumetry: denies: bruises, change in color, change in hair/nails, dryness, laceration, lesions, lumps, rash, wounds, others Allergic/Immunocompromised: denies: Difficulty Healing, Frequent Infections, Hives, Itching, others Hematologic/Lymphatic: denies: anemia, blood clots, easy bleeding, easy bruising, swollen glands, others Endocrine: denies: excessive hunger, excessive sweating, excessive thirst, excessive urination, flushing, intolerance to cold, intolerance to heat, unexplained weight gain, unexplained weight loss, others Psychiatric: denies: anxiety, bipolar disorder, depression, hopeless, panic disorder, schizophrenia, sleepless, suicidal, others All Other Systems: Reviewed and Negative Physical Exam General Appearance: Moderate Distress, Normal HEENT: Normal ENT Inspection, Pharynx Normal, TMs Normal Neck: Full Range of Motion, Non-Tender, Normal, Normal Inspection Respiratory: Chest Non-Tender, Lungs Clear, No Accessory Muscle Use, No Resp iratory Distress, Normal Breath Sounds Cardiovascular: No Edema, No JVD, No Murmur, No Gallop, Normal Peripheral Pulses, Regular Rate/Rhythm Breast Exam: Deferred Gastrointestinal: No Organomegaly, Non Tender, No Pulsatile Mass, Normal Bowel Sounds, Soft Genitalia: Deferred Pelvic: Deferred Rectal: Deferred Extremities: No calf tenderness, Normal capillary refill, Normal inspection, Normal range of motion, Non-tender, No pedal edema Musculoskeletal : Apperance: Normal Neurologic: Alert, banking center manager II-XII nml as Tested, No Motor Deficits, Normal Affect, Normal Mood, No Sensory Deficits Cerebellar Function: Normal Reflexes: Normal Skin: Dry, Normal Color, Warm Peripheral Pulses: 3+ Radial (R), 3+ Radial (L) Lymphatic: No Adenopathy Was a procedure done? Was a procedure done?: No Differential Dx Considerations may include: Anemia Electrolyte imbalance X-Ray, Labs, Meds, VS Vital Signs Date Time Temp Pulse Resp B/P (MAP) Pulse Ox O2 Delivery O2 Flow Rate FiO2 02/25/25 15:47 98.0 110 20 136/68 (90) 98 98.0 02/25/25 13:17 97.9 88 18 132/84 (100) 97 97.9 02/25/25 12:00 97.7 113 18 133/99 94 97.7 Lab Test 02/25/25 13:17 02/25/25 12:55 Range/Units White Blood Count 6.9 4.4-10.8 10^3/uL Red Blood Count 5.19 4.0-5.20 10^6/uL Hemoglobin 16.7 H 12.2-16.2 g/dL Hematocrit 49.0 H 36.0-46.0 % Mean Corpuscular Volume 94.3 80.0-100.0 fL Mean Corpuscular Hemoglobin 32.2 H 28.0-32.0 pg Mean Corpuscular Hemoglobin Concent 34.1 32.0-36.0 g/dL Red Cell Distribution Width 13.7 11.8-14.3 % Platelet Count 286 140-450 10^3/uL Mean Platelet Volume 9.1 6.9-10.8 fL Neutrophils (%) (Auto) 58.8 37.0-80.0 % Lymphocytes (%) (Auto) 30.0 10.0-50.0 % Monocytes (%) (Auto) 8.2 0.0-12.0 % Eosinophils (%) (Auto) 2.1 0.0-7.0 % Basophils (%) (Auto) 0.9 0.0-2.0 % Neutrophils # (Auto) 4.1 1.6-8.6 10 ^3/uL Lymphocytes # (Auto) 2.1 0.4-5.4 10 ^3/uL Monocytes # (Auto) 0.6 0-1.3 10 ^3/uL Eosinophils # (Auto) 0.1 0-0.8 10 ^3/uL Basophils # (Auto) 0.1 0-0.2 10 ^3/uL Nucleated Red Blood Cells 0.1 % Sodium Level 139 136-145 mmol/L Potassium Level 4.1 3.5-5.1 mmol/L Chloride Level 104 98-107 mmol/L Carbon Dioxide Level 27 20-31 mmol/L Anion Gap 8 5-15 Blood Urea Nitrogen 9 9-23 mg/dL Creatinine 0.70 0.550-1.02 mg/dL Glomerular Filtration Rate Calc 98 >90 mL/min BUN/Creatinine Ratio 12.9 10.0-20.0 Serum Glucose 116 H 74-106 mg/dL Calcium Level 9.6 8.7-10.4 mg/dL Urine Color Light-orange Yellow Urine Clarity Ex.turbid Clear Urine pH 5.0 5.0-9.0 Urine Specific [place] 1.022 1.001-1.035 Urine Protein Trace H Negative Urine Ketones Negative Negative Urine Blood Negative Negative /uL Urine Nitrite Negative Negative Urine Bilirubin Negative Negative Urine Urobilinogen Normal Negative mg/dL Urine Leukocyte Esterase 1+ Negative /uL Urine RBC 5 0 - 4 /hpf Urine Microscopic WBC 6 H 0-5 /HPF Urine Squamous Epithelial Cells Many <5 /hpf Urine Bacteria Few H None Seen /hpf Urine Hyaline Casts Mod 0 - 2 /lpf Urine Mucus Moderate None Seen Urine Yeast (Budding) Occasional None Seen /hpf Urine Glucose Normal Normal mg/dL Patient alert. Complaining of abdominal discomfort. Vitals stable. Answering questions. UA shows UTI. WBC within normal limits. Hemoglobin elevated. Was told to drink plenty of fluids. Ultrasound reveals normal flow. Was given prescription of Macrobid antibiotic. She is pain-free. Abdomen is soft nontender on re-evaluation. Explained to the patient that she will need to follow up with the OBGYN for further evaluation. Was told to follow up with her primary care physician. Was told to come back if there is any problem. Time of 1ST Reevaluation: 13:30 Reevaluation 1ST: Unchanged Patient Education/Counseling: Diagnosis, Treatment, Prognosis Family Education/Counseling: No Family Present SEPSIS Sepsis Screen Date sepsis recognized/suspect: Feb 25, 2025 Time Sepsis recognized/suspect: 1200 Recent Procedure: No On Antibiotic Therapy: No Respiratory Rate >20: No Heart Rate >90: No Temp<36 C (96.8 F) or >38.3 C: No SBP <90 or MAP <65 mmHG: No New Acute Mental Status Change: No Is the patient on CPAP, BIPAP,: No Physician Orders Pelvic (02/25/25 14:21) Vital Signs Date Time Temp Pulse Resp B/P (MAP) Pulse Ox O2 Delivery O2 Flow Rate FiO2 02/25/25 15:47 98.0 110 20 136/68 (90) 98 98.0 02/25/25 13:17 97.9 88 18 132/84 (100) 97 97.9 02/25/25 12:00 97.7 113 18 133/99 94 97.7 Laboratory Tests Test 02/25/25 13:17 White Blood Count 6.9 10^3/uL (4.4-10.8) Departure 1 Departure Time of Disposition: 14:20 Impression: Primary Impression: UTI (urinary tract infection) Qualified Codes: N30.01 - Acute cystitis with hematuria Disposition: HOME / SELF CARE / HOMELESS Condition: Good e-Prescriptions Nitrofurantoin Monohydrate Mac (Macrobid) 100 Mg Cap 100 MG PO BID for 10 Days, #20 CAP Prov: JENNIFER NJ MD 02/25/25 Discharged With: Self Critical Care Note Critical Care Time?: No Stability Stability form required: No Heart Score Heart Score: Heart Score Response (Comments) Value History N/A 0 EKG N/A 0 Age N/A 0 Risk Factors N/A 0 Troponin N/A 0 Total 0 I personally scribed for JENNIFER NJ MD ([email or web address]) on 02/25/25 at 13:12. Electronically submitted by Moraima Winter ([email or web address]). JENNIFER NJ MD Feb 25, 2025 13:12
[2025-02-25] MEDS: SODIUM CHLORIDE 0.9% 1,000 ML IV ONE (13:15)
[2025-02-25 13:45] LABS: Hematocrit 49.0 % (36.0-46.0); Hemoglobin 16.7 g/dL (12.2-16.2); Mean Corpuscular Hemoglobin 32.2 pg (28.0-32.0); Mean Corpuscular Volume 94.3 fL (80.0-100.0); Nucleated Red Blood Cells % 0.1 %
[2025-02-25 13:50] LABS: Chloride 104 mmol/L (98-107); Potassium 4.1 mmol/L (3.5-5.1); Sodium 139 mmol/L (136-145)
[2025-02-25 13:51] LABS: Anion Gap 8 (5-15); Calcium 9.6 mg/dL (8.7-10.4); Carbon Dioxide 27 mmol/L (20-31)
[2025-02-25 13:56] LABS: BUN/Creatinine Ratio 12.9 (10.0-20.0); Blood Urea Nitrogen 9 mg/dL (9-23)
[2025-02-25 13:57] LABS: Glucose 116 mg/dL (74-106)
[2025-02-25 14:14] LABS: Urine Budding Yeast OCCASIONAL /hpf (None Seen); Urine Protein, UAD TRACE (Negative)
[2025-02-25] MEDS ORDERED: NITR-87 PO (14:21)
--- NOTE | 2025-02-25 15:21 | DVH ---
Technique: Real-time ultrasound images through the pelvis using a transabdominal transducer. For better evaluation of the ovaries and endometrial stripe, an endovaginal transducer was used. Indication: ovary Comparison: US PELVIC on DOS: 02/09/25 Findings: The uterus measures 4.3 cm. Hypoechoic intramural lesion measuring 8 x 7 mm. Endometrial stripe measures 2 mm in thickness. Right ovary is nonvisualized. Left ovary measures 5.5 x 3.8 x 4.2 cm. Normal flow on color doppler images. Left ovarian cyst with simple features measuring 4.5 cm. There is no significant free fluid in the pelvis. Impression: Right ovary nonvisualized. 4.5 cm left ovarian cyst with simple features. Recommend razor grinder consultation for further evaluation / management. Uterine hypoechoic lesion measuring 8 mm, likely representing uterine leiomyoma. Right ovary nonvisualized.
[2025-02-25 15:47] VITALS: TEMP 98
[2025-02-25] MEDS: HYDROcodone-ACET 5/325MG TAB PO ONE (16:36)
[2025-02-25 17:16] VITALS: BP 147/87; PULSE 73; RESP 18; O2SAT 100
== END 2025-02-25 17:16 | disposition home or self-care (01) ==
LOC: ER 11:58
DX: N39.0 Urinary tract infection, site not specified (principal); F41.9 Anxiety disorder, unspecified; F32.A Depression, unspecified; I25.10 Atherosclerotic heart disease of native coronary artery without angina pectoris; Z79.899 Other long term (current) drug therapy; Z87.440 Personal history of urinary (tract) infections; Z59.00 Homelessness unspecified
CPT/HCPCS: 36415; 76856; 80048; 81001; 85025; 96360; 96361; 99284; J7030